=== PATIENT | male | born 1960 | race Caucasian/White ===

== ENCOUNTER 2019-09-25 14:42 | Inpatient (IN) | payer BC ==
[2019-09-25] MEDS ORDERED: MORPHINE SULFATE 4 MG/ML SYRINGE IVP STA (15:16)
--- NOTE | 2019-09-25 15:24 | ED ---
Extremity Problem HPI <JoieDarnell wilkinson - Last Filed: 09/25/19 18:53> - General Source: patient Mode of arrival: wheelchair Limitations: no limitations <Bjorn Goodman - Last Filed: 09/25/19 19:50> - General Chief complaint: Extremity Problem,Nontraumatic Stated complaint: trouble walking/leg numbness Time Seen by Provider: 09/25/19 14:52 - History of Present Illness Initial comments: Patient is a 58-year-old male with history of PAD presenting to the emergency Department with chief complaint of leg pain. Patient reports an onset of bilateral lower extremity pain at midnight that starts near the hips it radiates distally. Patient reports she also feels like his muscles and the thighs are "t ightening up." He also reports a tingling sensation to her bilateral lower extremities. Reports minimal sensation in bilateral feet. Denies any skin discoloration of feet. Does report increased muscle weakness but states that is only due to the pain. States any movement makes the pain worse. Does report taking [id number] analgesics minimal improvement. He states Dr. Alexis performed an endarterectomy in December 2018 with bilateral iliac stents. States he had not had any issues until right now. Denies an nausea or vomiting, abdominal pain, back pain, lightheadedness or near syncopal episodes. (Bjorn Goodman) - Related Data Home Medications Medication Instructions Recorded Confirmed Carbidopa-Levodopa 25-100 mg 1 tab PO BID 09/25/19 09/25/19 [Sinemet 25-100] Carbidopa-Levodopa ER 50-200Mg 1 tab PO TID 09/25/19 09/25/19 [Sinemet ER 50-200] Ibuprofen 600 mg PO Q8H PRN 09/25/19 09/25/19 Naproxen Sodium [Aleve] 220 mg PO Q12H PRN 09/25/19 09/25/19 Prevident 5000 Booster Plus 1 applic DENTAL BID 09/25/19 09/25/19 Sildenafil Citrate [Viagra] 50 - 100 mg PO DAILY PRN 09/25/19 09/25/19 Allergies Allergy/AdvReac Type Severity Reaction Status Date / Time No Known Allergies Allergy Verified 09/25/19 15:25 Review of Systems ROS Other: All systems not noted in ROS Statement are negative. <Darnell Woodard - Last Filed: 09/25/19 18:53> ROS Other: All systems not noted in ROS Statement are negative. <Bjorn Goodman - Last Filed: 09/25/19 19:50> ROS Statement: Those systems with pertinent positive or pertinent negative responses have been documented in the HPI. Past Medical History Additional Past Medical History / Comment(s): parkinsons History of Any Multi-Drug Resistant Organisms: None Reported Past Surgical History: Cardiac Valve Replacement Additional Past Surgical History / Comment(s): stents in bilateral legs, Past Psychological History: No Psychological Hx Reported Smoking Status: Current every day smoker Past Alcohol Use History: Occasional Past Drug Use History: None Reported <Bjorn Goodman - Last Filed: 09/25/19 19:50> General Exam Limitations: no limitations General appearance: alert, in no apparent distress Head exam: Present: atraumatic, normocephalic, normal inspection Eye exam: Present: normal appearance, PERRL, EOMI Pupils: Present: normal accommodation ENT exam: Present: normal exam Neck exam: Present: normal inspection, full ROM Respiratory exam: Present: normal lung sounds bilaterally Cardiovascular Exam: Present: normal rhythm, normal heart sounds GI/Abdominal exam: Present: soft, other (Abdominal scar from previous surgery). Absent: distended, tenderness, guarding Extremities exam: Present: full ROM, tenderness (Minimal diffuse tenderness to palpation.), other (Unable to detect dorsalis pedis and posterior tibialis bilaterally.). Absent: normal inspection (Bilateral feet are cold. Very mild ecchymosis noted on left toes. Bilateral lower extremity strength 5/5.) Back exam: Present: normal inspection, full ROM Neurological exam: Present: alert, oriented X3 Psychiatric exam: Present: normal affect, normal mood Skin exam: Present: warm, dry, intact, normal color <Bjorn Goodman - Last Filed: 09/25/19 19:50> Course <Darnell Woodard - Last Filed: 09/25/19 18:53> Vital Signs 09/25/19 09/25/19 14:45 19:13 Temperature 97.7 F 98 F Pulse Rate 110 H 90 Respiratory 18 18 Rate Blood Pressure 167/91 133/80 O2 Sat by Pulse 98 98 Oximetry - Reevaluation(s) Reevaluation #1: 09/25/19 17:[address] angiogram findings were discussed with Dr. Phipps (vascular surgery). He states that he will be down to the ED shortly to see the patient. He has no further recommendations at this time. 09/25/19 18:53 Case was discussed with Dr. Carlin. He accepts hospital admission. He has no further recommendations at this time. Dr. Phipps plans to take the patient to the OR from the emergency room. (Darnell Woodard) Medical Decision Making - Lab Data Result diagrams: 09/25/19 15:27 09/25/19 15:27 <Darnell Woodard - Last Filed: 09/25/19 18:53> - Lab Data Result diagrams: 09/25/19 15:27 09/25/19 15:27 <Bjorn Goodman - Last Filed: 09/25/19 19:50> - Medical Decision Making Patient is a 58-year-old male presents emergency Department with a chief complaint of bilateral lower extremity pain. On examination I was not able to detect any pedis and posterior tibialis pulses with an ultrasound. Laboratory results obtained. CT angiogram performed showing thrombosis at the aortic bypass graft. Lactic acid within normal limits. was consulted. He personally examined the patient and will take him to the OR for surgical treatment. He requested lactated Ringer's, and Ancef. Patient nothing by mouth. Case discussed with and Dr. Woodard. (Bjorn Goodman) - Lab Data Lab Results 09/25/19 09/25/19 09/25/19 Range/Units 15:27 15:27 15: WBC 13.6 H (3.8-10.6) k/uL RBC 4.67 (4.30-5.90) m/uL Hgb 14.1 (13.0-17.5) gm/dL Hct 43.2 (39.0-53.0) % MCV 92.5 (80.0-100.0) fL MCH 30.2 (25.0-35.0) pg MCHC 32.6 (31.0-37.0) g/dL RDW 13.7 (11.5-15.5) % Plt Count 197 (150-450) k/uL Neutrophils % 85 % Lymphocytes % 7 % Monocytes % 4 % Eosinophils % 2 % Basophils % 0 % Neutrophils # 11.6 H (1.3-7.7) k/uL Lymphocytes # 1.0 (1.0-4.8) k/uL Monocytes # 0.6 (0-1.0) k/uL Eosinophils # 0.3 (0-0.7) k/uL Basophils # 0.0 (0-0.2) k/uL PT 10.2 (9.0-12.0) sec INR 1.0 (<1.2) APTT 22.7 (22.0-30.0) sec Sodium 136 L (137-145) mmol/L Potassium 4.8 (3.5-5.1) mmol/L Chloride 103 (98-107) mmol/L Carbon Dioxide 22 (22-30) mmol/L Anion Gap 11 mmol/L BUN 20 (9-20) mg/dL Creatinine 0.71 (0.66-1.25) mg/dL Est GFR (CKD-EPI)AfAm >90 (>60 ml/min/1.73 sqM) Est GFR (CKD-EPI)NonAf >90 (>60 ml/min/1.73 sqM) Glucose 92 (74-99) mg/dL Plasma Lactic Acid Bony (0.7-2.0) mmol/L Calcium 9.6 (8.4-10.2) mg/dL Total Bilirubin 0.4 (0.2-1.3) mg/dL AST 19 (17-59) U/L ALT 8 (4-49) U/L Alkaline Phosphatase 75 (38-126) U/L Total Protein 7.5 (6.3-8.2) g/dL Albumin 4.5 (3.5-5.0) g/dL Blood Type Blood Type Confirm Blood Type Recheck Bld Type Recheck Status Antibody Screen Spec Expiration Date 09/25/19 09/25/19 09/25/19 Range/Units 15:47 15:50 16:15 WBC (3.8-10.6) k/uL RBC (4.30-5.90) m/uL Hgb (13.0-17.5) gm/dL Hct (39.0-53.0) % MCV (80.0-100.0) fL MCH (25.0-35.0) pg MCHC (31.0-37.0) g/dL RDW (11.5-15.5) % Plt Count (150-450) k/uL Neutrophils % % Lymphocytes % % Monocytes % % Eosinophils % % Basophils % % Neutrophils # (1.3-7.7) k/uL Lymphocytes # (1.0-4.8) k/uL Monocytes # (0-1.0) k/uL Eosinophils # (0-0.7) k/uL Basophils # (0-0.2) k/uL PT (9.0-12.0) sec INR (<1.2) APTT (22.0-30.0) sec Sodium (137-145) mmol/L Potassium (3.5-5.1) mmol/L Chloride (98-107) mmol/L Carbon Dioxide (22-30) mmol/L Anion Gap mmol/L BUN (9-20) mg/dL Creatinine (0.66-1.25) mg/dL Est GFR (CKD-EPI)AfAm (>60 ml/min/1.73 sqM) Est GFR (CKD-EPI)NonAf (>60 ml/min/1.73 sqM) Glucose (74-99) mg/dL Plasma Lactic Acid Bony 1.7 (0.7-2.0) mmol/L Calcium (8.4-10.2) mg/dL Total Bilirubin (0.2-1.3) mg/dL AST (17-59) U/L ALT (4-49) U/L Alkaline Phosphatase (38-126) U/L Total Protein (6.3-8.2) g/dL Albumin (3.5-5.0) g/dL Blood Type O Negative Blood Type Confirm O Negative Blood Type Recheck No Previous Record Bld Type Recheck Status CABO Indicated Antibody Screen NEGATIVE Spec Expiration Date 09/28/2019 - 2349 Disposition <Darnell Woodard - Last Filed: 09/25/19 18:53> Is patient prescribed a controlled substance at d/c from ED?: No Time of Disposition: 19:50 <Bjorn Goodman - Last Filed: 09/25/19 19:50> Clinical Impression: Thrombosis of aortic bifurcation bypass graft Disposition: ADMITTED IP TO THIS HOSP Condition: Fair Additional Instructions: Patient will be admitted Referrals: Drew Carlin MD [Primary Care Provider] - 1-2 days
[2019-09-25 15:39] LABS: Basophils % (A) 0 %; Eosinophils # (A) 0.3 k/uL (0-0.7); Eosinophils % (A) 2 %; HCT 43.2 % (39.0-53.0); HGB 14.1 gm/dL (13.0-17.5); Lymphocytes % (A) 7 %; MCH 30.2 pg (25.0-35.0); MCHC 32.6 g/dL (31.0-37.0); MCV 92.5 fL (80.0-100.0); Mean Platelet Volume 7.3; Monocytes # (A) 0.6 k/uL (0-1.0); Monocytes % (A) 4 %; Neutrophils # (A) 11.6 k/uL (1.3-7.7); Neutrophils % (A) 85 %; Platelet Count 197 k/uL (150-450); RBC 4.67 m/uL (4.30-5.90); RDW 13.7 % (11.5-15.5); WBC 13.6 k/uL (3.8-10.6)
[2019-09-25 15:48] LABS: ALT 8 U/L (4-49); AST 19 U/L (17-59); African American GFR (CKD) >90 (>60 ml/min/1.73 sqM); Albumin 4.5 g/dL (3.5-5.0); Alkaline Phosphatase 75 U/L (38-126); Anion Gap 11 mmol/L; Blood Urea Nitrogen 20 mg/dL (9-20); Calcium 9.6 mg/dL (8.4-10.2); Carbon Dioxide 22 mmol/L (22-30); Chloride 103 mmol/L (98-107); Glucose 92 mg/dL (74-99); Non-African American GFR(CKD) >90 (>60 ml/min/1.73 sqM); Potassium 4.8 mmol/L (3.5-5.1); Sodium 136 mmol/L (137-145); Total Bilirubin 0.4 mg/dL (0.2-1.3); Total Protein 7.5 g/dL (6.3-8.2)
[2019-09-25 15:54] LABS: Partial Thromboplastin Time 22.7 sec (22.0-30.0); Prothrombin Time 10.2 sec (9.0-12.0)
--- NOTE | 2019-09-25 17:18 | CT ---
CT angiogram of the chest abdomen pelvis with runoffs. History leg pain and numbness. Comparison 10/02/2018 TECHNIQUE: Multiple axial sections were obtained from the thoracic inlet to the bottom of the feet without and s ubsequently with intravenous contrast Isovue 100 mL. There are 3-D post processed images. FINDINGS: There is diffuse pulmonary emphysema. There is 1 cm stellate infiltrate left upper lobe near the lung apex. There is no pleural effusion. Heart size is normal. There is no mediastinal adenopathy. There is some retained fluid in the thoracic esophagus. There is no pericardial effusion. Thoracic aorta is intact. There is patency of the celiac artery and superior mesenteric artery. There is bilateral patency of the renal arteries. There is complete occlusion of the abdominal aorta below the renal arteries. There is aorto iliac bypass graft that appears complete ly occluded. There are some apparent collateral vessels reconstituting the femoral arteries. There is arterial flow in the superficial femoral artery and profunda femoris artery bilaterally. There is ar terial flow in the popliteal and tibial arteries bilaterally. There is mild plaque formation in the f emoral and tibial and popliteal arteries without hemodynamic stenosis. There is bilateral arterial fl ow in the tibial artery trifurcation. There is arterial flow in the posterior tibial arteries at the ankle. I do not see any significant flow in the anterior tibial arteries at the feet. The liver spleen stomach pancreas gallbladder and both kidneys appear intact. Bile ducts are not dila vic. There is no hydronephrosis. Ureters are not dilated. There is no retroperitoneal adenopathy. The re is no mesenteric edema. There is no ascites or free air. There is no sign of a bowel obstruction. There is no sign of thickened appendix. Prostate is enlarged and measures 6.1 cm. There are spondylot ic changes in the lumbar spine. Bony pelvis is intact. IMPRESSION: There is thrombosis of the aortoiliac bypass graft. There is thrombosis of the [place] distal abdomina l aorta and the common iliac arteries. There is collateral flow in the abdomen and reconstitution of the femoral arteries bilaterally. No evidence of hemodynamic stenosis of the femoral and popliteal ar teries. There is bilateral arterial flow at the ankles in the posterior tibial arteries. The bypass g raft is new compared to old exam. There is arterial flow in the dorsalis pedis artery of the right fo ot on old exam that I do not see on today's exam. There is no significant flow in the left side dorsa lis pedis artery.
[2019-09-25] MEDS ORDERED: SODIUM CHLORIDE 0.9% 500 ML 500 ML IV STA (18:29)
[2019-09-25] MEDS ORDERED: LACTATED RINGERS 500 ML IV ONE (18:30)
[2019-09-25] MEDS ORDERED: NALOXONE 0.4 MG/ML 1 ML VIAL IV PRN (18:54)
[2019-09-25] MEDS ORDERED: NEOSTIGMINE 1 MG/ML 10 ML VIAL ONE (19:35)
[2019-09-25] MEDS ORDERED: PROPOFOL 10 MG/ML 20 ML VIAL IV ONE (19:35)
[2019-09-25] MEDS ORDERED: GLYCOPYRROLATE 0.2 MG/ML 2 ML VIAL ONE (19:35)
[2019-09-25] MEDS ORDERED: SUCCINYLCHOLINE CHLORIDE 100 MG/5 ML SYR IV ONE (19:35)
[2019-09-25] MEDS ORDERED: MIDAZOLAM 2 MG/2 ML VIAL ONE (19:35)
[2019-09-25] MEDS ORDERED: LIDOCAINE 1% INJ 10MG/ML (20 ML MDV) ONE (19:35)
[2019-09-25] MEDS ORDERED: fentaNYL (PF) 50 MCG/ML 2 ML AMP ONE ×2 (19:35)
[2019-09-25] MEDS ORDERED: ROCURONIUM BROMIDE 10 MG/ML 5 ML VIAL IV ONE (19:35)
[2019-09-25] MEDS ORDERED: IV FLUID CONTINUATION 800 ML IV ONE (19:39)
[2019-09-25] MEDS ORDERED: HEPARIN SODIUM,PORCINE 10,000 UNIT in SODIUM CHLORIDE 0.9% 1,000 ML IRRIGATION ONE (20:23)
[2019-09-25] MEDS ORDERED: LACTATED RINGERS 1,000 ML IV ONE (20:30)
[2019-09-25] MEDS ORDERED: GELATIN SPONGE,ABSORB (LARGE) 1 EACH SPONGE TOPICAL ONE (21:07)
[2019-09-25] MEDS ORDERED: THROMBIN (BOVINE) 5,000 UNIT VIAL TOPICAL ONE (21:07)
[2019-09-25] MEDS ORDERED: MORPHINE SULFATE 2 MG/ML SYRINGE IVP PRN (21:43)
--- NOTE | 2019-09-25 21:53 | P.OP ---
Date of Procedure: 09/25/19 Preoperative Diagnosis: Thrombosed aortobifemoral bypass graft Postoperative Diagnosis: Same. Procedure(s) Performed: Thrombectomy aortobifemoral bypass graft utilizing bilateral femoral cutdowns. Anesthesia: KALA Surgeon: Mervin Phipps Search Manager #1: Danny Alvarado Estimated Blood Loss (ml): 100 Pathology: none sent Condition: stable Disposition: floor Indications for Procedure: Thrombosed aortobifemoral bypass graft. Description of Procedure: Patient is a 58-year-old male who presented to the emergency room earlier today complaining of acute onset bilateral lower extremity pain. This began approximately 2:00 in the morning and he presented to the emergency room approximately 12 hours later. He has a history of undergoing aortobifemoral bypass grafting approximately 8 months prior. Post procedure he had palpable pedal pulses and was otherwise doing well. He did not complain of any claudication or ischemic rest pain symptoms yesterday. The emergency room physical examination revealed absent femoral, popliteal and pedal pulses bilaterally. CTA was performed of the abdomen and pelvic vessels demonstrating thrombosis of the vessels. Patient is now offered thrombectomy. The procedure, risk and benefits were discussed with the patient and his . Patient wished to proceed and consent form was signed. Findings: Patient was brought the upper and placed in supine position Mr. general endotracheal anesthesia delivered by the department anesthesiology. Vee catheter is placed to gravity drainage. The patient received 2 g of Ancef in the perioperative phase for prophylactic antibiotic purposes. Patient's abdomen pelvic inguinal and thigh areas were sterilely prepped and draped in the usual manner. Simultaneously skin incisions were made overlying the femoral artery. Incision was deepened through the subcutaneous tissues. Hemostasis was achieved using electrocautery. Incision was deepened until the graft was reached. Graft was well incorporated without signs of infection or other complication outside of thrombosis. The femoral artery proximal and distal to the graft arterial anastomotic line were encircled Vesseloops. Additionally the graft was dissected free of investing tissues and encircled Vesseloops. Patient was systemically heparinized. ACT was drawn and found to be 242. A transverse incision in the [place] of the graft was made and extended with Pott Fernandes scissors. A 7-Georg[place] Maria E catheter was passed into the kaw aorta and thrombectomy was performed. Once completed excellent pulsatile flow was identified and the graft was occluded. Excellent backbleeding through both the profundus and superficial femoral arteries was identified. With the above findings noted the graftotomy was closed with 5-0 Prolene suture placed in simple interrupted form. Just prior to completion of the arteriotomy line closure backbleeding and fore bleeding was performed and no thrombus was retrieved and all air was expelled. The anastomotic line was completed flow restored through the graft into first the profundus and then into the superficial femoral artery. Excellent flow was identified with both a palpable pulse and good Doppler signal distal to the graft arterial anastomotic line. A similar procedure was performed on the contralateral side with similar findings. Both wounds were irrigated. Hemostasis was achieved. Deep tissues were closed in multiple layers with 3-0 Vicryl suture dermis was closed with 4-0 Vicryl placed in running intradermal fashion. Steri-Strips appropriate dressings were applied. Patient tolerated the procedure well awoke without apparent complication. Palpable posterior tibial pulses were noted at the completion of the procedure. Vee catheter was discontinued. Patient was taken to the recovery area satisfactory and stable condition.
[2019-09-25] MEDS ORDERED: HYDROcodone/APAP 7.5-325MG 1 EACH TAB PO PRN (22:00)
[2019-09-25] MEDS ORDERED: NAPROXEN 250 MG TAB PO PRN (22:00)
[2019-09-25] MEDS: CARBIDOPA-LEVODOPA ER 50-200MG 1 EACH TABLET.ER PO SCH (22:30)
[2019-09-26 07:20] LABS: HCT 38.9 % (39.0-53.0); HGB 12.9 gm/dL (13.0-17.5); MCHC 33.1 g/dL (31.0-37.0); MCV 93.6 fL (80.0-100.0); Mean Platelet Volume 7.5; Platelet Count 171 k/uL (150-450); RBC 4.15 m/uL (4.30-5.90); RDW 13.6 % (11.5-15.5); WBC 12.3 k/uL (3.8-10.6)
[2019-09-26 07:53] LABS: ALT <6 U/L (4-49); AST 33 U/L (17-59); African American GFR (CKD) >90 (>60 ml/min/1.73 sqM); Albumin 3.6 g/dL (3.5-5.0); Alkaline Phosphatase 62 U/L (38-126); Anion Gap 6 mmol/L; Blood Urea Nitrogen 14 mg/dL (9-20); Calcium 8.7 mg/dL (8.4-10.2); Carbon Dioxide 26 mmol/L (22-30); Chloride 106 mmol/L (98-107); Glucose 97 mg/dL (74-99); Non-African American GFR(CKD) >90 (>60 ml/min/1.73 sqM); Potassium 4.5 mmol/L (3.5-5.1); Sodium 138 mmol/L (137-145); Total Bilirubin 0.6 mg/dL (0.2-1.3); Total Protein 6.3 g/dL (6.3-8.2)
[2019-09-26] MEDS: CARBIDOPA-LEVODOPA ER 50-200MG 1 EACH TABLET.ER PO SCH ×2 (08:47→15:25)
[2019-09-26] MEDS ORDERED: PREVIDENT DENTAL SCH (09:00)
[2019-09-26] MEDS ORDERED: [UNRECOGNIZED DRUG - OTHER] DENTAL SCH (09:00)
[2019-09-26] MEDS ORDERED: CARBIDOPA-LEVODOPA 25-100 MG 1 EACH TAB PO SCH (09:00)
[2019-09-26] MEDS ORDERED: CLOPIDOGREL 75 MG TAB PO SCH (13:00)
--- NOTE | 2019-09-26 13:21 | P.PN ---
Subjective Progress Note Date: 09/26/19 Principal diagnosis: Status post thrombectomy aortobifemoral bypass graft. Patient is evaluated today postop day #1 status post thrombectomy aortobifemoral bypass graft via bilateral inguinal cutdowns. The patient indicates she feels well and offers no complaints. Patient indicates she has been ambulatory in his room and in the hallway. He is ambulatory without issue. Physical examination: Surgical wounds are clean, dry and are unremarkable. Femoral, popliteal and pos terior tibial pulses are intact bilaterally. Toes are freely movable and nontender. Impression: #1 status post thrombectomy aortobifemoral bypass graft with tenriism of normal arterial perfusion to the lower extremity bilaterally. #2: History of tobacco use. #3: Parkinson's disease. Recommendation: #1: Patient is surgically stable for discharge from the hospital. #2: Patient may ambulate without restriction. He may shower over his wounds starting tomorrow. No tub bathing. #3: Patient with was to avoid tobacco products. #4: Patient was asked follow-up in the office in 1 week time frame. Patient voices complete understanding. #5: Plavix to be added to medical regimen as there is no identifiable cause us to the patient's graft thrombosis. #6: Prescription for [place] 5/325 #12, to be taken 1 every 4 hours as needed for pain. Objective - Vital Signs Vital signs: Vital Signs Temp 98.7 F 09/26/19 12:00 Pulse 66 09/26/19 12:00 Resp 18 09/26/19 12:00 BP 112/59 09/26/19 12:00 Pulse Ox 98 09/26/19 08:00 Intake & Output 09/25/19 09/26/19 09/26/19 18:59 06:59 18:59 Intake Total 1351 118 Output Total 350 500 Balance 1001 -382 Weight 68.039 kg 68.039 kg 66.3 kg Intake: IV 1351 Oral 118 Output: Urine 250 500 Estimated Blood Loss 100 Other: Voiding Method Toilet # Voids 1 - Labs CBC & Chem 7: 09/26/19 07:04 09/26/19 07:04 Labs: Abnormal Lab Results - Last 24 Hours (Table) 09/25/19 09/25/19 09/26/19 Range/Units 15:27 15:27 07:04 WBC 13.6 H 12.3 H (3.8-10.6) k/uL RBC 4.15 L (4.30-5.90) m/uL Hgb 12.9 L (13.0-17.5) gm/dL Hct 38.9 L (39.0-53.0) % Neutrophils # 11.6 H (1.3-7.7) k/uL Sodium 136 L (137-145) mmol/L
[2019-09-26 15:29] VITALS: BP 116/63; PULSE 76; RESP 16; TEMP 98.4
--- NOTE | 2019-09-26 17:35 | HP ---
HISTORY AND PHYSICAL CHIEF COMPLAINT: Weakness and numbness in the lower extremities. HISTORY OF PRESENT ILLNESS: This is another admission for this 58-year-old white male who has had an aortofemoral procedure about a year ago. He came home from work, went to bed, got up and was unable to bear any weight on the lower extremities. There was no sensation. There was not a great deal of difficulty in terms of pain. He had a tingling sensation in the lower legs and he was brought to the emergency room by his son where he was found to have an aortic occlusion. He was taken to the operating room. REVIEW OF SYSTEMS: He had no other complaints or problems. He has no history of any trauma. PAST MEDICAL HISTORY: He has a history of parkinsonism. Past medical history, family history, personal and social histories reveal that he is on carbidopa levodopa, ibuprofen. He is not allergic to any medication. PHYSICAL EXAMINATION: Blood pressure is 167/91, pulse of 110, respirations 18. He is afebrile. In general he appeared to be slender in no acute distress. Skin color is normal. SKIN: Warm and dry. Lymph nodes not enlarged. Head, ears, eyes, nose, mouth, and throat were normal. Neck veins not distended. Carotids normal. Chest is clear. Cardiac exam demonstrates sinus rhythm and no murmurs or extra sounds. The abdomen is flat, soft, nontender. Extremities demonstrated coolness to palpation in both lower extremities. Neurologically, he is intact other than he has upper extremity Parkinson's tremor. IMPRESSION: He is admitted to the hospital with diagnoses: 1. Aortofemoral occlusion. 2. Parkinson disease. PLAN: He is being taken to the operating room by Vascular Surgery. MMODL / IJN: [id number] /
--- NOTE | 2019-09-26 17:49 | DS ---
DISCHARGE SUMMARY CHIEF COMPLAINT: Aortofemoral occlusion. HISTORY OF PRESENT ILLNESS AND PHYSICAL EXAM: Details of this man's history and physical can be found in the initial workup. LABORATORY STUDIES: While he was in the hospital, he had laboratory studies, details of which can be found laboratory section of his chart. COURSE IN HOSPITAL: After admission, he was placed on bedrest, started on intravenous fluids and he was taken to the operating room by vascular surgery and thrombectomy was carried out through both groins. Postoperatively, he had no problems and was released by vascular surgery. It was felt that he could go home on on September 25. He will go home on his usual activity, diet and medication in addition to aspirin once a day and Plavix 75 mg once a day, he will follow up in my office in several days. FINAL DIAGNOSES: 1. 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 2. Parkinson disease. OPERATIONS: Thrombectomy. CONSULTATIONS: Vascular surgery. He is improved. ARISTEO / ANDIE: [id number] /
== END 2019-09-26 17:29 | disposition home or self-care (01) | DRG 269 ==
LOC: EC 14:42 → 3SCARD 18:54 → EC 19:14 → 3SCARD 20:19
PROVIDERS: ADMIT Family Medicine; ATTEND Family Medicine
PROC: 04C00ZZ Extirpation of Matter from Abdominal Aorta, Open Approach (ICD-10-PCS; principal; 2019-09-25 18:58)
DX: T82.868A Thrombosis due to vascular prosthetic devices, implants and grafts, initial encounter (principal); I74.09 Other arterial embolism and thrombosis of abdominal aorta; G20 Parkinson's disease; F17.210 Nicotine dependence, cigarettes, uncomplicated; Z79.899 Other long term (current) drug therapy; Z95.2 Presence of prosthetic heart valve
CPT/HCPCS: 36415; 71275; 75635; 80053; 83605; 85025; 85027; 85610; 85730; 86850; 86900; 86901; 93005; 96374; 99285

== ENCOUNTER → 2022-04-23 | Outpatient (CLI) | payer OTHER ==
[2022-04-23 14:28] LABS: Basophils # (A) 0.05 X 10*3/uL (0.00-0.10); Basophils % (A) 0.6 %; Eosinophils % (A) 3.5 %; HGB 15.2 g/dL (13.0-17.0); Immature Grans, Automated 0.3 %; Lymphocytes # (A) 1.36 X 10*3/uL (0.90-5.00); Lymphocytes % (A) 15.7 %; MCV 93.9 fL (80.0-97.0); Mean Platelet Volume 9.7 fL (9.5-12.2); Monocytes # (A) 0.58 X 10*3/uL (0.20-1.00); Monocytes % (A) 6.7 %; NRBC Per 100 WBC 0 /100 WBCS (0.0-0.0); Neutrophils # (A) 6.34 X 10*3/uL (1.80-7.70); Neutrophils % (A) 73.2 %; Platelet Count 302 X 10*3/uL (140-440); RDW 13.8 % (11.5-14.5); WBC 8.66 X 10*3/uL (4.50-10.00)
[2022-04-23 14:35] LABS: African American GFR (CKD) 108.2 (60.0-200.0); Anion Gap 9.9 mmol/L (10.00-18.00); BUN/Creat Ratio 14.69 Ratio (12.00-20.00); Blood Urea Nitrogen 12.5 mg/dL (9.0-27.0); Calcium 9.8 mg/dL (8.7-10.3); Carbon Dioxide 27.6 mmol/L (20.0-27.5); Non-African American GFR(CKD) 93.3 (60.0-200.0); Potassium 4.7 mmol/L (3.5-5.5)
== END | disposition home or self-care (01) ==
LOC: LABPAT 09:02
PROVIDERS: ATTEND Urology
DX: Z01.812 Encounter for preprocedural laboratory examination (principal); C61 Malignant neoplasm of prostate
CPT/HCPCS: 80048; 85025

== ENCOUNTER 2022-04-30 11:01 | Day surgery (SDC) | payer OTHER ==
[2022-04-25 17:48] VITALS: BMI 22.6
--- NOTE | 2022-04-29 07:01 | P.GSHP ---
History of Present Illness H&P Date: 04/29/22 Chief Complaint: Prostate cancer The patient is a 61-year-old white male with recently diagnosed prostate cancer. His PSA level is 6.44. 3 of 12 biopsies showed Christina 6/7 adenocarcinoma. He has elected to be treated with IMRT and androgen deprivation therapy for 6 months. He now comes for SpaceOAR implant to reduce the risk of radiation induced rectal toxicity. - Gastrointestinal Gastrointestinal: Reports heartburn - Genitourinary (Male) Genitourinary: Reports nocturia Past Medical History Past Medical History: Cancer, Neurologic Disorder, Osteoarthritis (OA), Prostate Disorder, Vascular Disorder Additional Past Medical History / Comment(s): parkinsons, PROSTATE CANCER History of Any Multi-Drug Resistant Organisms: None Reported Past Surgical History: Cardiac Valve Replacement Additional Past Surgical History / Comment(s): stents in bilateral legs, COLONOSCOPY Past Anesthesia/Blood Transfusion Reactions: No Reported Reaction Smoking Status: Former smoker - Past Family History Mother Family Medical History: No Reported History Father Family Medical History: No Reported History Brother(s) Family Medical History: Cancer Medications and Allergies Home Medications Medication Instructions Recorded Confirmed Type Carbidopa-Levodopa 25-100 mg 1 tab PO BID 09/25/19 04/25/22 History [Sinemet 25-100 mg] Carbidopa-Levodopa ER 50-200Mg 1 tab PO TID 09/25/19 04/25/22 History [Sinemet CR 50-200 mg] Naproxen Sodium [Aleve] 220 mg PO Q12H PRN 09/25/19 04/25/22 History Sildenafil Citrate [Viagra] 50 - 100 mg PO DAILY PRN 09/25/19 04/25/22 History Clopidogrel [Plavix] 75 mg PO DAILY #90 tab 09/26/19 04/25/22 Rx Aspirin EC [Ecotrin Low Dose] 81 mg PO HS 04/25/22 04/25/22 History Allergies Allergy/AdvReac Type Severity Reaction Status Date / Time No Known Allergies Allergy Verified 04/25/22 17:41 Surgical - Exam - General well developed, well nourished, no distress - Neck no masses, trachea midline - Respiratory normal respiratory effort - Abdomen Abdomen: soft, non tender, no guarding, no rigid, no rebound - Genitourinary normal penis with no external lesions, testicles non-tender - Rectum Rectum: normal sphincter tone, no masses, other (Prostate moderately enlarged and anodular) - Psychiatric oriented to time, oriented to person, oriented to place, speech is normal, memory intact Assessment and Plan (1) Malignant neoplasm of prostate Status: Acute Code(s): C61 - MALIGNANT NEOPLASM OF PROSTATE SNOMED Code(s): 097817619 Plan: The SpaceOar implant has been reviewed in detail with the patient. He understands that the rationale for this is to create separation between the prostate and rectum, thus reducing the risk of radiation proctitis. The material begins to breakdown 12-13 weeks following implant, and is reabsorbed by the body. Risks include anesthesia, bleeding, infection, and perineal discomfort. He understands that if the rectal wall is perforated the procedure will need to be aborted.
[~2022-04-30 11:01] MED LIST: DEXAMETHASONE SOD PHOSPHATE 4 MG/ML 1 ML VIAL IV ONE; HYDROmorphone 0.5 MG/0.5 ML SYRINGE IVP PRN; LACTATED RINGERS 1,000 ML IV SCH; LIDOCAINE 1% (10MG/ML) FOR IV START INTRADERMA PRN; ONDANSETRON 4 MG/2 ML VIAL IVP ONE; SCOPOLAMINE 1 MG/72 HR PATCH TRANSDERM ONE
[2022-04-30 12:22] LABS: Appearance,Urine Clear (Clear); Bilirubin,Urine Negative (Negative); Blood,Urine Negative (Negative); Color,Urine Yellow; Glucose,Urine (UA) Negative (Negative); Ketones,Urine Trace (Negative); Leukocyte Esterase,Urine Moderate (Negative); Mucus,Urine Occasional /hpf; Nitrite,Urine Negative (Negative); Protein,Urine Trace (Negative); RBC,Urine 4 /hpf (0-5); Specific Gravity,Urine 1.021 (1.001-1.035); Urobilinogen,Urine <2.0 mg/dL (<2.0); WBC,Urine 15 /hpf (0-5)
[2022-04-30] MEDS ORDERED: MIDAZOLAM 2 MG/2 ML VIAL ONE (13:10)
[2022-04-30] MEDS ORDERED: fentaNYL (PF) 50 MCG/ML 2 ML AMP ONE (13:10)
[2022-04-30] MEDS ORDERED: PROPOFOL 10 MG/ML 20 ML VIAL IV ONE (13:10)
[2022-04-30] MEDS ORDERED: KETAMINE 10 MG/ML 20 ML VIAL ONE (13:10)
[2022-04-30] MEDS ORDERED: LIDOCAINE 2% (PF) 20 MG/ML 5 ML VIAL SQ ONE ×2 (13:28)
--- NOTE | 2022-04-30 13:49 | P.OP ---
Date of Procedure: 04/30/22 Preoperative Diagnosis: Adenocarcinoma of the prostate Postoperative Diagnosis: Same Procedure(s) Performed: SpaceOAR Implant Anesthesia: MAC Surgeon: Ronnie Díaz Estimated Blood Loss (ml): 5 IV fluids (ml): 400 Pathology: none sent Condition: stable Disposition: PACU Indications for Procedure: The patient is a 61-year-old white male with recently diagnosed prostate cancer. His PSA level is 6.44. 3 of 12 biopsies showed Christina 6/7 adenocarcinoma. He has elected to be treated with IMRT and androgen deprivation therapy for 6 months. He now comes for SpaceOAR implant to reduce the risk of radiation induced rectal toxicity. Operative Findings: 1.5 cm separation created between prostate and rectum. Description of Procedure: The patient was taken to the operating room and placed in the dorsolithotomy position, with his legs supported in Kishore stirrups. The external genitalia was prepped and draped sterilely. The Bruel and Kjaer transrectal ultrasound probe was placed intrarectally. The prostate was imaged. The probe was then placed within the stabilizing stand. A spinal needle was advanced under ultrasonic guidance to the level of the urogenital diaphragm, and lidocaine was used to infiltrate the tissues as the needle was withdrawn. Next, the SpaceOAR needle was passed through the midline of the perineum, 1-2 cm anterior to the anal opening. The needle was slowly advanced under ultrasonic guidance until the needle tip was located within the fat plane between the prostate and rectum, at the level of the mid prostate gland. The needle was confirmed to be midline on the axial imaging. A small amount of normal saline was injected for hydrodissection. Next, the SpaceOAR components were mixed and loaded into the Y connector per protocol. The Y connector was then connected to the needle, and the components were injected slowly over a course of approximately 12 seconds. A total of 10 ml was injected. Significant distance was created between the prostate and rectum, as desired. It should be noted that at no point was there any concern of rectal perforation. The needle was withdrawn, as well as the transrectal ultrasound probe, and the procedure was terminated. The patient tolerated the procedure well and was taken to the recovery room in stable condition.
[2022-04-30 14:03] VITALS: TEMP 97.1
[2022-04-30] MEDS ORDERED: LACTATED RINGERS 1,000 ML IV ONE (14:29)
[2022-04-30 14:56] VITALS: RESP 20
[2022-04-30 15:20] VITALS: BP 137/74; PULSE 70
== END 2022-04-30 15:27 | disposition home or self-care (01) ==
LOC: OR 11:01
PROVIDERS: ATTEND Urology
DX: C61 Malignant neoplasm of prostate (principal); M19.90 Unspecified osteoarthritis, unspecified site; R29.90 Unspecified symptoms and signs involving the nervous system; Z95.5 Presence of coronary angioplasty implant and graft; Z87.891 Personal history of nicotine dependence; Z79.82 Long term (current) use of aspirin; Z79.899 Other long term (current) drug therapy
CPT/HCPCS: 81001; 55876; C1889; J2250; J1100; J0690; J2405; J3010; J2704; J2001

== ENCOUNTER → 2022-05-03 | Outpatient (CLI) | payer OTHER ==
--- NOTE | 2022-05-03 14:46 | MR ---
EXAMINATION TYPE: MR Prostate wo/w con DATE OF EXAM: 05/03/2022 9:06 AM COMPARISON: None. CLINICAL INDICATION:Male, 61 years old with history of C61 malignant neoplasm prostate; TECHNIQUE: Multi-planar, multi-sequence imaging of the pelvis is performed prior to and following the uncomplicated administration of bolus intravenous gadolinium. CONTRAST: 7.5 cc of Gadavist. Interpretive Criteria: PI-RADS v2.1 SERUM PSA: 6.4 on 11/23/2021 SURGICAL PATHOLOGY: Prostatic adenocarcinoma involving: Left mid gland, Christina 3+3 Left lateral Christina 3+4 FINDINGS: Prostatic dimensions: 5.8 x 4.4 x 5.7 cm. cm. Ellipsoid Volume: 76.16 (PSA density=0.08 ng/mL/mL) CENTRAL GLAND/PERIPHERAL ZONE (PZ): There is an area of ill-defined low T2 signal extending from the left mid central gland into the valerio pheral zone measuring up to 1.7 x 1.0 cm. This area corresponds with pathology in the area of positiv e biopsy for adenocarcinoma. There is associated high DWI signal in this region and low ADC signal. P IRADS 5 Additional diffuse low signal is seen throughout the peripheral gland with an area of sparing just of f midline on the left. This diffuse T2 low signal within the peripheral gland correlates with intrins ic high T1 signal. There are additional scattered foci of high intrinsic T1 signal within the prostat e Central gland. Findings are likely secondary to hemorrhage from prior biopsy. SEMINAL VESICLES (SV): Symmetric and unremarkable. PERIPROSTATIC TISSUES: Unremarkable. LYMPH NODES: No enlarged pelvic lymph lymph nodes there is a prominent 5 mm in short axis lymph node just lateral right of the urinary bladder series 201 image 17. REMAINING PELVIS: Circumferential bladder wall thickening with trabeculations likely secondary to chronic bladder outfl ow obstruction. No abnormal free or organized intrapelvic fluid collection. No pathologic bowel dilation or mural thickening. High T2 signal fluid collection extends between the rectum and the prostate which could be iatrogenic . OSSEOUS STRUCTURES: No suspicious osseous abnormality. IMPRESSION: 1. Lesion in the Left mid gland which is thought to extend into the left lateral mid gland peripheral zone corresponding with pathologic report of previous biopsy measuring up to 1.7 cm PIRADS 5. 2. Nonspecific prominent but nonenlarged lymph node adjacent to the bladder on the right. If there is is concern for metastatic disease considered Ga-68 Illuccix (PSMA) PET/CT scan. 3. Moderate BPH, estimated gland volume 76 mL.
== END | disposition home or self-care (01) ==
LOC: RADMRIMAIN 07:14
PROVIDERS: ATTEND Radiology Radiation Oncology
DX: C61 Malignant neoplasm of prostate (principal); N40.0 Benign prostatic hyperplasia without lower urinary tract symptoms
CPT/HCPCS: 72197; A9585

== ENCOUNTER 2022-06-15 23:30 | Emergency (ER) | payer OTHER ==
--- NOTE | 2022-06-16 00:13 | ED ---
Male Urogenital HPI - General Chief complaint: Urogenital Stated complaint: Urine Retention Time Seen by Provider: 06/15/22 23:53 Source: patient, RN notes reviewed Mode of arrival: ambulatory - History of Present Illness Initial comments: This is a pleasant 61-year-old male who is currently undergoing radiation therapy for prostate cancer. Patient presents to the emergency department today with urinary retention. Patient states he's getting out a small amount of urine every time but feels like he is not emptying his bladder. Complaining of pressure in the suprapubic area. Patient tried Pyridium prior to arrival with no relief. No fever, no chills, no nausea or vomiting, no flank pain. No chest pain or shortness breath. No changes in bowel movements. - Related Data Home Medications Medication Instructions Recorded Confirmed Carbidopa-Levodopa 25-100 mg 1 tab PO BID 09/25/19 04/30/22 [Sinemet 25-100 mg] Carbidopa-Levodopa ER 50-200Mg 1 tab PO TID 09/25/19 04/30/22 [Sinemet CR 50-200 mg] Naproxen Sodium [Aleve] 220 mg PO Q12H PRN 09/25/19 04/25/22 Sildenafil Citrate [Viagra] 50 - 100 mg PO DAILY PRN 09/25/19 04/25/22 Aspirin EC [Ecotrin Low Dose] 81 mg PO HS 04/25/22 04/25/22 Previous Rx's Medication Instructions Recorded Clopidogrel [Plavix] 75 mg PO DAILY #90 tab 09/26/19 Sulfamethox-Tmp 800-160Mg [Bactrim 1 tab PO Q12HR #14 tab 04/30/22 DS 800-160 mg] Allergies Allergy/AdvReac Type Severity Reaction Status Date / Time No Known Allergies Allergy Verified 06/15/22 23:39 Review of Systems ROS Statement: Those systems with pertinent positive or pertinent negative responses have been documented in the HPI. ROS Other: All systems not noted in ROS Statement are negative. Past Medical History Past Medical History: Neurologic Disorder, Osteoarthritis (OA), Vascular Disorder Additional Past Medical History / Comment(s): parkinsons History of Any Multi-Drug Resistant Organisms: None Reported Past Surgical History: Cardiac Valve Replacement Additional Past Surgical History / Comment(s): stents in bilateral legs, Past Anesthesia/Blood Transfusion Reactions: No Reported Reaction Past Psychological History: No Psychological Hx Reported Past Drug Use History: None Reported - Past Family History Mother Family Medical History: No Reported History Father Family Medical History: No Reported History Brother(s) Family Medical History: Cancer General Exam - General Exam Comments Initial Comments: Patient appears to be uncomfortable and in distress secondary to urinary retention. Does not appear to be ill or toxic. Capillary refill less than 2 seconds. No mottling. General appearance: alert, in distress Head exam: Present: atraumatic, normocephalic, normal inspection Eye exam: Present: normal appearance, PERRL, EOMI. Absent: scleral icterus, conjunctival injection, periorbital swelling ENT exam: Present: normal exam, mucous membranes moist Neck exam: Present: normal inspection, full ROM. Absent: tenderness, menin gismus, lymphadenopathy Respiratory exam: Present: normal lung sounds bilaterally. Absent: respiratory distress, wheezes, rales, rhonchi, stridor Cardiovascular Exam: Present: regular rate, normal rhythm, normal heart sounds. Absent: systolic murmur, diastolic murmur, rubs, gallop, clicks GI/Abdominal exam: Present: distended, tenderness (Patient has tenderness in the suprapubic area with evidence of bladder distention.), normal bowel sounds. Absent: guarding, rebound, rigid Extremities exam: Present: normal inspection, full ROM, normal capillary refill. Absent: tenderness, pedal edema, joint swelling, calf tenderness Back exam: Present: normal inspection Neurological exam: Present: alert, oriented X3, CN II-XII intact Psychiatric exam: Present: normal affect, normal mood Skin exam: Present: warm, dry, intact, normal color. Absent: rash Course Vital Signs 06/15/22 23:36 Temperature 97.9 F Pulse Rate 111 H Respiratory 18 Rate Blood Pressure 157/92 O2 Sat by Pulse 96 Oximetry - Reevaluation(s) Reevaluation #1: 06/16/22 01:22 Medical record is reviewed Symptoms are improved here in the emergency department Patient is informed of results and questions answered Patient in no distress Medical Decision Making - Medical Decision Making Differential diagnosis urinary retention is most likely. This does not appear to be consistent with ureterolithiasis or intra-abdominal pathology. Obstructive uropathy possible. Less likely urinary tract infection. Combination of urinary retention and urinary tract infection possible. CBC shows a white blood cell count of 10,800. 9100 neutrophils. Lymphocytes 0.8. Remainder is unremarkable. BMP is essentially normal aside from glucose of 115. Urinalysis shows no evidence of infectious process. Going to go ahead and leave the Vee catheter and and have the patient follow- up with his urologist on Friday or Friday. Patient had a significant amount of urinary retention, 900 mL on bladder scan. I believe the Vee catheter had to be emptied once by the RN. There was another 600 mL in the bag at the time of discharge. Patient was much improved and in no distress. Patient concurs with this treatment plan. Patient was told to return to the ER for any signs or symptoms worsen. Told to return immediately if any other problems arise. All questions answered. Treatment plan discussed. Patient in agreement Every effort has been made to ensure accuracy of this dictation. However, due to the limitations of electronic medical records and dictation devices, errors in charting still occur. C[employer] Operator [employer] Dr. Guo - Lab Data Result diagrams: 06/16/22 00:44 06/16/22 00:44 Lab Results 06/16/22 06/16/22 06/16/22 Range/Units 00:14 00:44 00:44 WBC 10.8 H (3.8-10.6) k/uL RBC 4.20 L (4.30-5.90) m/uL Hgb 13.2 (13.0-17.5) gm/dL Hct 38.8 L (39.0-53.0) % MCV 92.4 (80.0-100.0) fL MCH 31.5 (25.0-35.0) pg MCHC 34.1 (31.0-37.0) g/dL RDW 13.1 (11.5-15.5) % Plt Count 250 (150-450) k/uL MPV 7.1 Neutrophils % 84 % Lymphocytes % 7 % Monocytes % 6 % Eosinophils % 1 % Basophils % 0 % Neutrophils # 9.1 H (1.3-7.7) k/uL Lymphocytes # 0.8 L (1.0-4.8) k/uL Monocytes # 0.6 (0-1.0) k/uL Eosinophils # 0.1 (0-0.7) k/uL Basophils # 0.0 (0-0.2) k/uL Sodium 137 (137-145) mmol/L Potassium 4.1 (3.5-5.1) mmol/L Chloride 106 (98-107) mmol/L Carbon Dioxide 23 (22-30) mmol/L Anion Gap 8 mmol/L BUN 16 (9-20) mg/dL Creatinine 0.77 (0.66-1.25) mg/dL Est GFR (CKD-EPI)AfAm >90 (>60 ml/min/1.73 sqM) Est GFR (CKD-EPI)NonAf >90 (>60 ml/min/1.73 sqM) Glucose 115 H (74-99) mg/dL Calcium 9.5 (8.4-10.2) mg/dL Urine Color Dark Gonzales Urine Appearance Clear (Clear) Urine RBC 1 (0-5) /hpf Urine WBC 1 (0-5) /hpf Hyaline Casts 1 (0-2) /lpf Urine Mucus Rare H (None) /hpf Disposition Clinical Impression: Acute urinary retention Disposition: HOME SELF-CARE Condition: Good Instructions (If sedation given, give patient instructions): Urinary Retention in Men (ED), Vee Catheter Placement and Care (ED) Additional Instructions: Leave the Vee catheter in place and follow up with the urologist on Friday or Friday. Call at 8 AM Friday morning to schedule a follow-up appointment. Follow-up with your regular physician as directed. Return to the ER immediately if any symptoms worsen, new symptoms arise, or any other problems develop. Is patient prescribed a controlled substance at d/c from ED?: No Referrals: Ronnie Díaz MD [STAFF PHYSICIAN] - 06/18/22 Time of Disposition: 01:23
[2022-06-16 00:46] LABS: Hyaline Casts,Urine 1 /lpf (0-2); Mucus,Urine Rare /hpf; RBC,Urine 1 /hpf (0-5); WBC,Urine 1 /hpf (0-5)
[2022-06-16 00:50] LABS: Appearance,Urine Clear (Clear)
[2022-06-16 00:51] LABS: Color,Urine Dark Orange
[2022-06-16 01:04] LABS: Basophils % (A) 0 %; Eosinophils # (A) 0.1 k/uL (0-0.7); Eosinophils % (A) 1 %; HCT 38.8 % (39.0-53.0); HGB 13.2 gm/dL (13.0-17.5); Lymphocytes # (A) 0.8 k/uL (1.0-4.8); Lymphocytes % (A) 7 %; MCH 31.5 pg (25.0-35.0); MCHC 34.1 g/dL (31.0-37.0); MCV 92.4 fL (80.0-100.0); Mean Platelet Volume 7.1; Monocytes # (A) 0.6 k/uL (0-1.0); Monocytes % (A) 6 %; Neutrophils # (A) 9.1 k/uL (1.3-7.7); Neutrophils % (A) 84 %; Platelet Count 250 k/uL (150-450); RDW 13.1 % (11.5-15.5); WBC 10.8 k/uL (3.8-10.6)
[2022-06-16 01:15] LABS: African American GFR (CKD) >90 (>60 ml/min/1.73 sqM); Anion Gap 8 mmol/L; Blood Urea Nitrogen 16 mg/dL (9-20); Calcium 9.5 mg/dL (8.4-10.2); Carbon Dioxide 23 mmol/L (22-30); Chloride 106 mmol/L (98-107); Glucose 115 mg/dL (74-99); Non-African American GFR(CKD) >90 (>60 ml/min/1.73 sqM); Potassium 4.1 mmol/L (3.5-5.1); Sodium 137 mmol/L (137-145)
[2022-06-16 02:44] VITALS: BP 150/90; PULSE 101; RESP 20; TEMP 98.8
== END 2022-06-16 02:37 | disposition home or self-care (01) ==
LOC: EC 23:30
DX: R33.9 Retention of urine, unspecified (principal); M19.90 Unspecified osteoarthritis, unspecified site; Z79.82 Long term (current) use of aspirin; Z79.899 Other long term (current) drug therapy
CPT/HCPCS: 36415; 51798; 80048; 81001; 85025; 99284

== ENCOUNTER 2022-06-21 21:57 | Emergency (ER) | payer OTHER ==
[2022-06-21 22:04] VITALS: RESP 18
--- NOTE | 2022-06-21 22:48 | ED ---
Male Urogenital HPI - General Chief complaint: Urogenital Stated complaint: Urinary retention Time Seen by Provider: 06/21/22 22:00 Source: patient, RN notes reviewed, old records reviewed Mode of arrival: ambulatory Limitations: no limitations - History of Present Illness Initial comments: This is a 61-year-old male to the emergency department for evaluation. Patient presents today for evaluation regards to inability to urinate. Patient cannot urinate has severe abdominal pain positive nausea symptoms are severe and progressively worsened. This is a revisit complaint evaluation for urinary retention. MD Complaint: other (Inability to urinate) -: hour(s) Radiation: none Severity: severe Severity scale (1-10): 10 Quality: sharp Consistency: constant Improves with: none Worsens with: none indwelling catheter Reports: denies other symptoms - Related Data Home Medications Medication Instructions Recorded Confirmed Carbidopa-Levodopa 25-100 mg 1 tab PO BID 09/25/19 04/30/22 [Sinemet 25-100 mg] Carbidopa-Levodopa ER 50-200Mg 1 tab PO TID 09/25/19 04/30/22 [Sinemet CR 50-200 mg] Naproxen Sodium [Aleve] 220 mg PO Q12H PRN 09/25/19 04/25/22 Sildenafil Citrate [Viagra] 50 - 100 mg PO DAILY PRN 09/25/19 04/25/22 Aspirin EC [Ecotrin Low Dose] 81 mg PO HS 04/25/22 04/25/22 Previous Rx's Medication Instructions Recorded Clopidogrel [Plavix] 75 mg PO DAILY #90 tab 09/26/19 Sulfamethox-Tmp 800-160Mg [Bactrim 1 tab PO Q12HR #14 tab 04/30/22 DS 800-160 mg] Allergies Allergy/AdvReac Type Severity Reaction Status Date / Time No Known Allergies Allergy Verified 06/21/22 22:04 Review of Systems ROS Statement: Those systems with pertinent positive or pertinent negative responses have been documented in the HPI. ROS Other: All systems not noted in ROS Statement are negative. Past Medical History Past Medical History: Neurologic Disorder, Osteoarthritis (OA), Vascular Disorder Additional Past Medical History / Comment(s): parkinsons History of Any Multi-Drug Resistant Organisms: None Reported Past Surgical History: Cardiac Valve Replacement Additional Past Surgical History / Comment(s): stents in bilateral legs, Past Anesthesia/Blood Transfusion Reactions: No Reported Reaction Past Psychological History: No Psychological Hx Reported Past Drug Use History: None Reported - Past Family History Mother Family Medical History: No Reported History Father Family Medical History: No Reported History Brother(s) Family Medical History: Cancer General Exam General appearance: alert, in no apparent distress, anxious Head exam: Present: atraumatic, normocephalic, normal inspection Eye exam: Present: normal appearance, PERRL, EOMI. Absent: scleral icterus, conjunctival injection, periorbital swelling ENT exam: Present: normal exam, mucous membranes moist Neck exam: Present: normal inspection. Absent: tenderness, meningismus, lymphadenopathy Respiratory exam: Present: normal lung sounds bilaterally. Absent: respiratory distress, wheezes, rales, rhonchi, stridor Cardiovascular Exam: Present: normal rhythm, tachycardia, normal heart sounds. Absent: systolic murmur, diastolic murmur, rubs, gallop, clicks GI/Abdominal exam: Present: soft, normal bowel sounds. Absent: distended, tenderness, guarding, rebound, rigid Extremities exam: Present: normal inspection, full ROM, normal capillary refill. Absent: tenderness, pedal edema, joint swelling, calf tenderness Back exam: Present: normal inspection Neurological exam: Present: alert, oriented X3, CN II-XII intact Psychiatric exam: Present: normal affect, normal mood Skin exam: Present: warm, dry, intact, normal color. Absent: rash Course Vital Signs 06/21/22 06/21/22 22:01 23:49 Temperature 98.7 F 98 F Pulse Rate 103 H 81 Respiratory 18 18 Rate Blood Pressure 143/86 122/82 O2 Sat by Pulse 97 96 Oximetry - Reevaluation(s) Reevaluation #1: 06/21/22 Medical record is reviewed Patient symptoms improved here in the ER Patient informed of results and questions answered Medical Decision Making - Medical Decision Making 61 male today with urinary retention. Patient has foot catheter placed symptoms are resolved patient can be Disposition Clinical Impression: Acute urinary retention Disposition: HOME SELF-CARE Condition: Good Instructions (If sedation given, give patient instructions): Urinary Retention in Men (ED) Is patient prescribed a controlled substance at d/c from ED?: No Referrals: Drew Carlin MD [Primary Care Provider] - 1-2 days Time of Disposition: 23:40
[2022-06-21 23:50] VITALS: BP 122/82; PULSE 81; TEMP 98
== END 2022-06-21 23:50 | disposition home or self-care (01) ==
LOC: EC 21:57
DX: R33.9 Retention of urine, unspecified (principal); M19.90 Unspecified osteoarthritis, unspecified site; Z79.1 Long term (current) use of non-steroidal anti-inflammatories (NSAID); Z79.82 Long term (current) use of aspirin
CPT/HCPCS: 51798; 99283

== ENCOUNTER 2022-07-04 02:24 | Emergency (ER) | payer OTHER ==
[2022-07-04 03:07] VITALS: RESP 18; TEMP 98.7
--- NOTE | 2022-07-04 03:59 | ED ---
General Adult HPI - General Chief complaint: Urogenital Stated complaint: Difficulty urinating Time Seen by Provider: 07/04/22 03:26 Source: patient Mode of arrival: ambulatory - History of Present Illness Initial comments: This is a 61-year-old male who has been seen in the emergency department multiple times in the last several weeks presents emergency department once again for urinary retention. The patient reportedly was seen 2 weeks ago for the same complaints and had a Vee catheter placed. Reported that the patient did have his Vee catheter removed per the urologist recommendations on Friday. The patient stated that over night he stopped urinating and his last urination was at 7:30 PM. The patient was in moderate distress secondary to suprapubic abdominal pain. The patient denied any other acute pain or complaints at this time. The patient did have a past medical history including prostate cancer as well as Parkinson's disease. The patient on my evaluation had arty had a Vee catheter placed by nursing staff and was resting in bed comfortably does not complaining of any other acute pain or distress. - Related Data Home Medications Medication Instructions Recorded Confirmed Carbidopa-Levodopa 25-100 mg 1 tab PO BID 09/25/19 04/30/22 [Sinemet 25-100 mg] Carbidopa-Levodopa ER 50-200Mg 1 tab PO TID 09/25/19 04/30/22 [Sinemet CR 50-200 mg] Naproxen Sodium [Aleve] 220 mg PO Q12H PRN 09/25/19 04/25/22 Sildenafil Citrate [Viagra] 50 - 100 mg PO DAILY PRN 09/25/19 04/25/22 Aspirin EC [Ecotrin Low Dose] 81 mg PO HS 04/25/22 04/25/22 Previous Rx's Medication Instructions Recorded Clopidogrel [Plavix] 75 mg PO DAILY #90 tab 09/26/19 Sulfamethox-Tmp 800-160Mg [Bactrim 1 tab PO Q12HR #14 tab 04/30/22 DS 800-160 mg] Allergies Allergy/AdvReac Type Severity Reaction Status Date / Time No Known Allergies Allergy Verified 07/04/22 03:07 Review of Systems ROS Statement: Those systems with pertinent positive or pertinent negative responses have been documented in the HPI. ROS Other: All systems not noted in ROS Statement are negative. Past Medical History Past Medical History: Neurologic Disorder, Osteoarthritis (OA), Vascular Disorder Additional Past Medical History / Comment(s): parkinsons History of Any Multi-Drug Resistant Organisms: None Reported Past Surgical History: Cardiac Valve Replacement Additional Past Surgical History / Comment(s): stents in bilateral legs, Past Anesthesia/Blood Transfusion Reactions: No Reported Reaction Past Psychological History: No Psychological Hx Reported Past Drug Use History: None Reported - Past Family History Mother Family Medical History: No Reported History Father Family Medical History: No Reported History Brother(s) Family Medical History: Cancer General Exam Limitations: no limitations General appearance: alert, in no apparent distress (Patient was no acute distress to my evaluation however wasn't acute distress per the nursing triage notes.) Head exam: Present: atraumatic, normocephalic Eye exam: Present: normal appearance, PERRL Pupils: Present: normal accommodation ENT exam: Present: normal exam, normal oropharynx, mucous membranes moist Neck exam: Present: normal inspection, full ROM Respiratory exam: Present: normal lung sounds bilaterally Cardiovascular Exam: Present: regular rate, normal rhythm, normal heart sounds GI/Abdominal exam: Present: soft, normal bowel sounds exam: Present: normal inspection, other (Vee catheter was placed while I evaluated the patient) Extremities exam: Present: normal inspection, full ROM, normal capillary refill Back exam: Present: normal inspection, full ROM Neurological exam: Present: alert, oriented X3, CN II-XII intact Psychiatric exam: Present: normal affect, normal mood Skin exam: Present: warm, dry Course Vital Signs 07/04/22 07/04/22 03:05 04:32 Temperature 98.7 F Pulse Rate 107 H 95 Respiratory 18 18 Rate Blood Pressure 138/82 156/97 O2 Sat by Pulse 97 98 Oximetry Medical Decision Making - Medical Decision Making Was pt. sent in by a medical professional or institution? @ -No Did you speak to anyone other than the patient for history? @ -Yes, patient's Did you review nursing and triage notes? @ -Triage notes were obtained and reviewed Were old charts reviewed? @ -Yes previous ER visits were reviewed Differential Diagnosis? @ -Urinary tract infection, acute urinary retention EKG interpreted by me (3pts min.)? @ -[none] X-rays interpreted by me (1pt min.)? @ -[none] CT interpreted by me (1pt min.)? @ -[none] U/S interpreted by me (1pt. min.)? @ -[none] What testing was considered but not performed? (CT, X-rays, U/S, labs)? Why? @ None What meds were considered but not given? Why? @ -None Did you discuss the management of the patient with other professionals? @ -No Did you reconcile home meds? @ -[none] Was smoking cessation discussed for >3mins.? @ -[none] Was critical care preformed (if so, how long)? @ -[none] Were there social determinants of health that impacted care today? How? (Homelessness, low income, unemployed, alcoholism, drug addiction, transportation, low edu. Level, literacy, decrease access to med. care, long-term, rehab)? @ -None Was there de-escalation of care discussed even if they declined? (Discuss DNR or withdrawal of care, Hospice)? @ -No What co-morbidities impacted this encounter? (DM, HTN, Smoking, COPD, CAD, Cancer, CVA, Hep., AIDS, mental health diagnosis, sleep apnea, morbid obesity)? @ -Parkinson's disease, prostate cancer Was patient admitted / discharged? @ -The patient was seen and evaluated emergency department. Physical exam, the patient was resting in bed without any acute distress. Vital signs admission were stable. The patient had distress noted prior to my evaluation and nursing staff did place a Vee catheter in the patient prior to my evaluation. When I evaluated the patient, the patient had resolution of his pain and had approximate 700 mL of urine produced. Urinalysis was obtained was negative for infection. The patient was deemed stable for discharge. The patient was advised to follow-up with his urologist as previously scheduled next week and to continue his Vee catheter care. Both himself and the patient's were agreeable to this and all depressions were answered. The patient was discharged home in stable condition with his . Undiagnosed new problem with uncertain prognosis? @ -[none] Drug Therapy requiring intensive monitoring for toxicity (Heparin, Nitro, Insulin, Cardizem)? @ -[none] Were any procedures done? @ -[none] Diagnosis/symptom? @ -Urinary retention Acute, or Chronic, or Acute on Chronic? @ -Acute Uncomplicated (without systemic symptoms) or Complicated (systemic symptoms)? @ -Uncomplicated Side effects of treatment? @ -[none] Exacerbation, Progression, or Severe Exacerbation] @ -[no] Poses a threat to life or bodily function? @ -[no] - Lab Data Lab Results 07/04/22 Range/Units 03:32 Urine Color Colorless Urine Appearance Clear (Clear) Urine pH 5.0 (5.0-8.0) Ur Specific Sumpter 1.005 (1.001-1.035) Urine Protein Negative (Negative) Urine Glucose (UA) Negative (Negative) Urine Ketones Negative (Negative) Urine Blood Negative (Negative) Urine Nitrite Negative (Negative) Urine Bilirubin Negative (Negative) Urine Urobilinogen <2.0 (<2.0) mg/dL Ur Leukocyte Esterase Negative (Negative) Disposition Clinical Impression: Urinary retention Disposition: HOME SELF-CARE Condition: Stable Instructions (If sedation given, give patient instructions): Urinary Retention in Men (ED) Is patient prescribed a controlled substance at d/c from ED?: No Referrals: Drew Carlin MD [Primary Care Provider] - 1-2 days Time of Disposition: 04:20
[2022-07-04 04:12] LABS: Appearance,Urine Clear (Clear); Bilirubin,Urine Negative (Negative); Blood,Urine Negative (Negative); Color,Urine Colorless; Glucose,Urine (UA) Negative (Negative); Ketones,Urine Negative (Negative); Leukocyte Esterase,Urine Negative (Negative); Nitrite,Urine Negative (Negative); Protein,Urine Negative (Negative); Specific Gravity,Urine 1.005 (1.001-1.035); Urobilinogen,Urine <2.0 mg/dL (<2.0)
[2022-07-04 04:32] VITALS: BP 156/97; PULSE 95
== END 2022-07-04 04:33 | disposition home or self-care (01) ==
LOC: EC 02:24
DX: R33.9 Retention of urine, unspecified (principal); M19.90 Unspecified osteoarthritis, unspecified site; Z79.82 Long term (current) use of aspirin
CPT/HCPCS: 51702; 51798; 81003; 99283; 99284

== ENCOUNTER → 2022-11-15 | Outpatient (CLI) | payer OTHER ==
[2022-11-15 21:25] LABS: Testosterone 43.5 ng/mL (86.98-780.10)
== END | disposition home or self-care (01) ==
LOC: LABWHC1 12:03
PROVIDERS: ATTEND Radiology Radiation Oncology
DX: C61 Malignant neoplasm of prostate (principal); G20 Parkinson's disease; R31.9 Hematuria, unspecified
CPT/HCPCS: 36415; 84153; 84403

== ENCOUNTER → 2023-02-13 | Outpatient (CLI) | payer OTHER ==
[2023-02-13 20:23] LABS: Prostate Specific Antigen 0.5 ng/mL (0.000-4.500)
== END | disposition home or self-care (01) ==
LOC: LABWHC1 14:46
PROVIDERS: ATTEND Radiology Radiation Oncology
DX: C61 Malignant neoplasm of prostate (principal); G20 Parkinson's disease; R31.9 Hematuria, unspecified
CPT/HCPCS: 36415; 84153; 84403

== ENCOUNTER → 2023-09-09 | Outpatient (CLI) | payer OTHER | END | disposition home or self-care (01) | LOC: LABWHC1 10:35 | PROVIDERS: ATTEND Radiology Radiation Oncology | DX: C61 Malignant neoplasm of prostate (principal); G20.C Parkinsonism, unspecified; R31.9 Hematuria, unspecified | CPT/HCPCS: 36415; 84153 ==

== ENCOUNTER → 2024-03-09 | Outpatient (CLI) | payer MEDICARE | END | disposition home or self-care (01) | LOC: LABWHC1 12:04 | PROVIDERS: ATTEND Radiology Radiation Oncology | DX: C61 Malignant neoplasm of prostate (principal); G20.A1 Parkinson's disease without dyskinesia, without mention of fluctuations; R31.9 Hematuria, unspecified; Z85.46 Personal history of malignant neoplasm of prostate | CPT/HCPCS: 36415; 84153 ==

== ENCOUNTER → 2024-09-01 | Outpatient (CLI) | payer MEDICARE | END | disposition home or self-care (01) | LOC: LABWHC1 10:41 | PROVIDERS: ATTEND Radiology Radiation Oncology | DX: C61 Malignant neoplasm of prostate (principal); G20.A1 Parkinson's disease without dyskinesia, without mention of fluctuations; R31.9 Hematuria, unspecified; Z85.46 Personal history of malignant neoplasm of prostate | CPT/HCPCS: 36415; 84153 ==